=== PATIENT | male | born 1985 | race Two or more races ===

== ENCOUNTER 2021-06-22 13:42 | Emergency (ER) | payer MEDICAID ==
[~2021-06-22] VITALS: Ht 175.3 cm; Wt 80.7 kg
[2021-06-22 14:12] VITALS: BP 123/71
[2021-06-22] MEDS ORDERED: IBUPROFEN 600 MG TABLET ONE (14:49)
[2021-06-22] MEDS ORDERED: IBUPROFEN 600 MG TABLET PO ONE (15:00)
--- NOTE | 2021-06-22 15:00 | NUR ---
TAKEN TO CT
[2021-06-22] MEDS ORDERED: CYCL5TAB PO (16:41)
[2021-06-22] MEDS ORDERED: IBUP-1955 PO (16:41)
== END 2021-06-22 16:53 | disposition home or self-care (01) ==
LOC: ER 13:47
DX: R07.89 Other chest pain (principal); M54.2 Cervicalgia; V49.49XA Driver injured in collision with other motor vehicles in traffic accident, initial encounter; Y93.89 Activity, other specified; Y92.413 State road as the place of occurrence of the external cause; Y99.8 Other external cause status
CPT/HCPCS: 71046; 72040-TC